=== PATIENT | female | born 1955 | race Caucasian/White ===

== ENCOUNTER → 2016-12-23 | Outpatient (CLI) | payer BC, OTHER ==
--- NOTE | 2016-12-23 16:10 | XR ---
Left knee HISTORY: Pain 3 views of the left knee No comparisons Bone mineralization is reduced. Marginal spurring is present especially at the patellofemoral joint, hypertrophic changes are present with some fragmentation of the enthesophyte at the insertion of the quadriceps tendon. There may be joint effusion. Popliteal artery calcifications are present. There is soft tissue swelling. Possible varicosities also noted. Difficult to exclude chondrocalcinosis. IMPRESSION: Suspect findings are chronic, consider osteoarthritis, crystal deposition arthropathy.
== END ==
LOC: RADXRMAIN 15:17
PROVIDERS: ATTEND Family Medicine
DX: M25.562 Pain in left knee (principal)

== ENCOUNTER 2017-02-11 08:19 | Day surgery (SDC) | payer BC, OTHER ==
[2017-02-05 16:08] VITALS: BMI 43.2
[~2017-02-11 08:19] MED LIST: LACTATED RINGERS 1,000 ML IV SCH; LIDOCAINE 1% 20 ML VIAL (10MG/ML) FOR IV START INTRADERMA PRN
[2017-02-11 08:34] VITALS: RESP 16; TEMP 98.3
--- NOTE | 2017-02-11 08:45 | P.GSHP ---
History of Present Illness H&P Date: 02/11/17 CHIEF COMPLAINT: Colon screen HISTORY OF PRESENT ILLNESS: The patient is a 61-year-old female who presents for colon screen. Lower endoscopy was offered for further evaluation and management. PAST MEDICAL HISTORY: Please see list. PAST SURGICAL HISTORY: Please see list. MEDICATIONS: Please see list. ALLERGIES: Please see list. SOCIAL HISTORY: No illicit drug use FAMILY HISTORY: No reports of Crohn disease or ulcerative colitis. REVIEW OF ORGAN SYSTEMS: CONSTITUTIONAL: No reports of fevers or chills. PHYSICAL EXAM: VITAL SIGNS: Stable GENERAL: Well-developed pleasant in no acute distress. HEENT: No scleral icterus. Extraocular movements grossly intact. Moist buccal mucosa. NECK: Supple without lymphadenopathy. CHEST: Unlabored respirations. Equal bilateral excursions. CARDIOVASCULAR: Regular rate and rhythm. Distal 2+ pulses. ABDOMEN: Soft, nontender, nondistended. MUSCULOSKELETAL: No clubbing, cyanosis, or edema. ASSESSMENT: 1. Colon screen. PLAN: 1. Recommend proceeding with a lower endoscopy Past Medical History Past Medical History: Cancer, GERD/Reflux, Hyperlipidemia, Hypertension, Myocardial Infarction ([place]), Thyroid Disorder Additional Past Medical History / Comment(s): HX BREAST CA, optical migraines, silent [place], heart murmer, frequent bowel movements, gets swelling of left leg- cause unknown, arthritis, Last Myocardial Infarction Date:: unknown History of Any Multi-Drug Resistant Organisms: None Reported Past Surgical History: AICD, Breast Surgery, Heart Catheterization, Pacemaker, Tonsillectomy Additional Past Surgical History / Comment(s): RT BREAST LUMPECTOMY Past Anesthesia/Blood Transfusion Reactions: Postoperative Nausea & Vomiting ( PONV) Type of Cardiac Device: Permanent Pacemaker, AICD Device Placement Date:: 05/30/2014 Past Psychological History: No Psychological Hx Reported Additional Psychological History / Comment(s): . Smoking Status: Current every day smoker Past Alcohol Use History: None Reported Additional Past Alcohol Use History / Comment(s): smokes 6 cigarretes daily, has smoked for 30 yrs Past Drug Use History: None Reported - Past Family History Sister(s) Family Medical History: Cancer Additional Family Medical History / Comment(s): 2 SISTERS WITH CERVICAL CA Medications and Allergies Home Medications Medication Instructions Recorded Confirmed Type Aspirin 81 mg PO DAILY 05/26/14 02/11/17 History Lisinopril [Zestril] 10 mg PO BID 05/26/14 02/11/17 History Lovastatin [Mevacor] 10 mg PO HS 05/26/14 02/11/17 History Spironolactone [Aldactone] 25 mg PO HS 05/26/14 02/11/17 History Calcium/Magnesium/Zinc 1 each PO BID 04/26/15 02/11/17 History [Ykrevlp-Msfboxiax-Utvb Tablet] Carvedilol [Coreg] 9.37 mg PO BID 02/05/17 02/11/17 History Magnesium Oxide [Magnesium] 250 mg PO DAILY 02/05/17 02/11/17 History Allergies Allergy/AdvReac Type Severity Reaction Status Date / Time perflutren lipid microspheres Allergy Rash/Hives, Verified 02/11/17 08:29 [From [employer]] diff swallowing iv contrast dye with heart Allergy Rash/Hives, Uncoded 02/11/17 08:29 cath diff swallowing Surgical - Exam Vital Signs Temp Pulse Resp BP Pulse Ox 98.3 F 69 16 147/69 98 02/11/17 08:33 02/11/17 08:33 02/11/17 08:33 02/11/17 08:33 02/11/17 08:33
[2017-02-11] MEDS ORDERED: PROPOFOL 10 MG/ML 20 ML VIAL IV ONE (09:28)
[2017-02-11] MEDS ORDERED: LIDOCAINE 1% INJ 10MG/ML (20 ML MDV) ONE (09:28)
[2017-02-11 10:22] VITALS: BP 132/77; PULSE 65
--- NOTE | 2017-02-11 10:36 | P.PCN ---
Date of Procedure: 02/11/17 Preoperative Diagnosis: Postoperative Diagnosis: Procedure(s) Performed: Implants: Indications for Procedure: Operative Findings: Description of Procedure: PREOPERATIVE DIAGNOSIS: Colonoscopy screening. Personal history of colon polyps. Family history of colon polyps. Diverticulosis. POSTOPERATIVE DIAGNOSIS: Colonoscopy screening. Personal history of colon polyps. Family history of colon polyps. Diverticulosis. External hemorrhoid. Anal skin tag. OPERATION: Colonoscopy to the ileocecal valve and appendiceal orifice. Colonoscopy with snare polypectomy of sigmoid colon, 15 cm from anal verge SURGEON: Nancy Osorio MD. ANESTHESIA: MAC. INDICATIONS: The patient is a 61-year-old female who presents for colonoscopy screening. Her last colonoscopy was between 8-10 years ago. Benefits and risks were described and informed consent was obtained. DESCRIPTION OF PROCEDURE: The patient had undergone Gatorade, MiraLAX and Dulcolax prep. She had been brought into the operating room and laid in the left lateral decubitus position. After adequate intravenous sedation, the rectum was examined with 2% lidocaine jelly. External hemorrhoids and skin tags were encountered. The rectal tone was within normal limits. No lesions were palpated in the rectal vault. An Olympus colonoscope was advanced until the ileocecal valve and appendiceal orifice were clearly viewed. The prep was excellent with clear visualization of the mucosal folds. The scope was removed with visualization of each mucosal fold. Scattered moderate diverticulosis was encountered. A 1.8 cm tubular adenoma with snare polypectomy at the sigmoid colon, 15 cm from the anal verge. No evidence of focal colitis was found. Retroflexion of the scope demonstrated grade 1 internal hemorrhoids without active bleeding or inflammation. The colon was desufflated. The patient had tolerated the procedure well. Withdrawal time was over 6 minutes. FINDINGS: Internal hemorrhoids, grade 1 External prolapsed hemorrhoids, grade 3. No arteriovenous malformations. A 1.8 cm tubular adenoma with snare polypectomy at the sigmoid colon, 15 cm from the anal verge. No focal colitis. Anal skin tag. RECOMMENDATIONS: Lower endoscopy in 1 to 2 years, 2018. Plan - Discharge Summary New Discharge Prescriptions: No Action Spironolactone [Aldactone] 25 mg PO HS Lovastatin [Mevacor] 10 mg PO HS Lisinopril [Zestril] 10 mg PO BID Aspirin 81 mg PO DAILY Calcium/Magnesium/Zinc [Esexfkk-Cmzppedag-Wnlp Tablet] 1 each PO BID Carvedilol [Coreg] 9.37 mg PO BID Magnesium Oxide [Magnesium] 250 mg PO DAILY Discharge Medication List Aspirin 81 mg PO DAILY 05/26/14 [History] Lisinopril [Zestril] 10 mg PO BID 05/26/14 [History] Lovastatin [Mevacor] 10 mg PO HS 05/26/14 [History] Spironolactone [Aldactone] 25 mg PO HS 05/26/14 [History] Calcium/Magnesium/Zinc [Tkmnoay-Tsrvbqbeo-Ckwr Tablet] 1 each PO BID 04/26/15 [ History] Carvedilol [Coreg] 9.37 mg PO BID 02/05/17 [History] Magnesium Oxide [Magnesium] 250 mg PO DAILY 02/05/17 [History] Follow up Appointment(s)/Referral(s): Nancy Osorio MD [STAFF PHYSICIAN] - 02/24/17 3:40 pm Patient Instructions/Handouts: *Surgery [facility] - (Anesthesia) Endoscopy Discharge Instructions, Colonoscopy (GEN), Diverticulosis (GEN), Colorectal Polyps (GEN), Diverticulosis Diet (GEN) Activity/Diet/Wound Care/Special Instructions: Repeat colonoscopy in 2019. Discharge Disposition: HOME SELF-CARE
== END 2017-02-11 10:36 | disposition home or self-care (01) ==
LOC: ORWHC2ENDO 08:19
PROVIDERS: ATTEND Surgery Plastic and Reconstructive Surgery
DX: Z12.11 Encounter for screening for malignant neoplasm of colon (principal); D12.5 Benign neoplasm of sigmoid colon; K64.2 Third degree hemorrhoids; K57.30 Diverticulosis of large intestine without perforation or abscess without bleeding; K64.0 First degree hemorrhoids; K64.4 Residual hemorrhoidal skin tags; Z86.010 Personal history of colon polyps; Z83.71 Family history of colonic polyps; K21.9 Gastro-esophageal reflux disease without esophagitis; E78.5 Hyperlipidemia, unspecified; I10 Essential (primary) hypertension; I25.2 Old myocardial infarction; E07.9 Disorder of thyroid, unspecified; F17.210 Nicotine dependence, cigarettes, uncomplicated; Z79.82 Long term (current) use of aspirin; Z79.899 Other long term (current) drug therapy; Z88.8 Allergy status to other drugs, medicaments and biological substances; Z91.041 Radiographic dye allergy status
CPT/HCPCS: 88305; 45385; J2001; J2704

== ENCOUNTER 2018-02-03 10:08 | Day surgery (SDC) | payer BC, OTHER ==
--- NOTE | 2018-02-03 08:13 | P.GSHP ---
History of Present Illness H&P Date: 02/03/18 CHIEF COMPLAINT: Colon screen HISTORY OF PRESENT ILLNESS: The patient is a 62-year-old female who presents for colon screen. Lower endoscopy was offered for further evaluation and management. PAST MEDICAL HISTORY: Please see list. PAST SURGICAL HISTORY: Please see list. MEDICATIONS: Please see list. ALLERGIES: Please see list. SOCIAL HISTORY: No illicit drug use FAMILY HISTORY: No reports of Crohn disease or ulcerative colitis. REVIEW OF ORGAN SYSTEMS: CONSTITUTIONAL: No reports of fevers or chills. PHYSICAL EXAM: VITAL SIGNS: Stable GENERAL: Well-developed pleasant in no acute distress. HEENT: No scleral icterus. Extraocular movements grossly intact. Moist buccal mucosa. NECK: Supple without lymphadenopathy. CHEST: Unlabored respirations. Equal bilateral excursions. CARDIOVASCULAR: Regular rate and rhythm. Distal 2+ pulses. ABDOMEN: Soft, nontender, nondistended. MUSCULOSKELETAL: No clubbing, cyanosis, or edema. ASSESSMENT: 1. Colon screen. PLAN: 1. Recommend proceeding with a lower endoscopy Past Medical History Past Medical History: Cancer, GERD/Reflux, Hyperlipidemia, Hypertension, Myocardial Infarction ([place]), Thyroid Disorder Additional Past Medical History / Comment(s): HX BREAST CA, optical migraines, silent [place], heart murmer, frequent bowel movements, gets swelling of left leg- cause unknown, arthritis, Last Myocardial Infarction Date:: unknown History of Any Multi-Drug Resistant Organisms: None Reported Past Surgical History: AICD, Breast Surgery, Heart Catheterization, Pacemaker, Tonsillectomy Additional Past Surgical History / Comment(s): RT BREAST LUMPECTOMY Past Anesthesia/Blood Transfusion Reactions: Postoperative Nausea & Vomiting ( PONV) Type of Cardiac Device: Permanent Pacemaker, AICD Device Placement Date:: 05/30/2014 Past Psychological History: No Psychological Hx Reported Additional Psychological History / Comment(s): . Smoking Status: Current every day smoker Past Alcohol Use History: None Reported Additional Past Alcohol Use History / Comment(s): smokes 6 cigarretes daily, has smoked for 30 yrs Past Drug Use History: None Reported - Past Family History Sister(s) Family Medical History: Cancer Additional Family Medical History / Comment(s): 2 SISTERS WITH CERVICAL CA Medications and Allergies Home Medications Medication Instructions Recorded Confirmed Type Aspirin 81 mg PO DAILY 05/26/14 02/11/17 History Lisinopril [Zestril] 10 mg PO BID 05/26/14 02/11/17 History Lovastatin [Mevacor] 10 mg PO HS 05/26/14 02/11/17 History Spironolactone [Aldactone] 25 mg PO HS 05/26/14 02/11/17 History Calcium/Magnesium/Zinc 1 each PO BID 04/26/15 02/11/17 History [Twnogxa-Zuiebmukb-Uefj Tablet] Carvedilol [Coreg] 9.37 mg PO BID 02/05/17 02/11/17 History Magnesium Oxide [Magnesium] 250 mg PO DAILY 02/05/17 02/11/17 History Allergies Allergy/AdvReac Type Severity Reaction Status Date / Time perflutren lipid microspheres Allergy Rash/Hives, Verified 02/11/17 08:29 [From [employer]] diff swallowing iv contrast dye with heart Allergy Rash/Hives, Uncoded 02/11/17 08:29 cath diff swallowing
[2018-02-03 12:05] VITALS: RESP 18; TEMP 97.8
[2018-02-03] MEDS ORDERED: LACTATED RINGERS 1,000 ML IV ONE (12:05)
[2018-02-03] MEDS ORDERED: PROPOFOL 10 MG/ML 20 ML VIAL IV ONE (12:23)
[2018-02-03 12:51] VITALS: PULSE 70
--- NOTE | 2018-02-03 12:52 | P.PCN ---
Date of Procedure: 02/03/18 Description of Procedure: PREOPERATIVE DIAGNOSIS: Colonoscopy screening. Personal history of colon polyps. Family history of colon polyps. Diverticulosis. POSTOPERATIVE DIAGNOSIS: Colonoscopy screening. Personal history of colon polyps. Family history of colon polyps. Diverticulosis. External hemorrhoid. Anal skin tag. OPERATION: Colonoscopy to the ileocecal valve and appendiceal orifice. Colonoscopy with snare polypectomy of mid transverse colon SURGEON: Nancy Osorio MD. ANESTHESIA: MAC. INDICATIONS: The patient is a 62-year-old female who presents for colonoscopy screening. Her last colonoscopy was 1 year ago with a large over 1.5 cm colon polyp. She presents for surveillance. Benefits and risks were described and informed consent was obtained. DESCRIPTION OF PROCEDURE: The patient had undergone Gatorade, MiraLAX and Dulcolax prep. She had been brought into the operating room and laid in the left lateral decubitus position. After adequate intravenous sedation, the rectum was examined with 2% lidocaine jelly. External hemorrhoids and anal skin tags were encountered. The rectal tone was within normal limits. No lesions were palpated in the rectal vault. An Olympus colonoscope was advanced until the ileocecal valve and appendiceal orifice were clearly viewed. The prep was excellent with clear visualization of the mucosal folds. The scope was removed with visualization of each mucosal fold. Scattered moderate diverticulosis was encountered with moderate sigmoid diverticulosis. At the mid transverse colon, a 3 mm to 4 adenoma with snare polypectomy. No recurrence of her tubular adenoma of the sigmoid colon. No evidence of focal colitis was found. Retroflexion of the scope demonstrated grade 1 internal hemorrhoids without active bleeding or inflammation. The colon was desufflated. The patient had tolerated the procedure well. Withdrawal time was over 6 minutes. FINDINGS: Internal hemorrhoids, grade 1 External prolapsed hemorrhoids, grade 3. No arteriovenous malformations. Scattered moderate diverticulosis was encountered with moderate sigmoid diverticulosis. At the mid transverse colon, a 3 mm to 4 adenoma with snare polypectomy. No recurrence of her tubular adenoma of the sigmoid colon. No focal colitis. Anal skin tag. RECOMMENDATIONS: Lower endoscopy in 3 years, 2020 Plan - Discharge Summary New Discharge Prescriptions: No Action Spironolactone [Aldactone] 1.5 tab PO DAILY Lovastatin [Mevacor] 10 mg PO HS Lisinopril [Zestril] 10 mg PO BID Aspirin 81 mg PO DAILY Calcium/Magnesium/Zinc [Stktgjs-Abnbnycnk-Tmjo Tablet] 1 each PO BID Carvedilol [Coreg] 9.37 mg PO BID Magnesium Oxide [Magnesium] 250 mg PO DAILY Discharge Medication List Aspirin 81 mg PO DAILY 05/26/14 [History] Lisinopril [Zestril] 10 mg PO BID 05/26/14 [History] Lovastatin [Mevacor] 10 mg PO HS 05/26/14 [History] Spironolactone [Aldactone] 1.5 tab PO DAILY 05/26/14 [History] Calcium/Magnesium/Zinc [Lgjmznq-Mydhmjzls-Tzbm Tablet] 1 each PO BID 04/26/15 [ History] Carvedilol [Coreg] 9.37 mg PO BID 02/05/17 [History] Magnesium Oxide [Magnesium] 250 mg PO DAILY 02/05/17 [History]
[2018-02-03 13:09] VITALS: BP 128/84
[2018-02-03] MEDS ORDERED: LACTATED RINGERS 1,000 ML IV SCH (13:09)
[2018-02-03] MEDS ORDERED: LIDOCAINE 1% 20 ML VIAL (10MG/ML) FOR IV START INTRADERMA PRN (13:09)
== END 2018-02-03 13:25 | disposition home or self-care (01) ==
LOC: ORWHC2ENDO 10:08
PROVIDERS: ATTEND Surgery Plastic and Reconstructive Surgery
DX: Z12.11 Encounter for screening for malignant neoplasm of colon (principal); D12.3 Benign neoplasm of transverse colon; K63.5 Polyp of colon; K21.9 Gastro-esophageal reflux disease without esophagitis; E78.5 Hyperlipidemia, unspecified; I10 Essential (primary) hypertension; I25.2 Old myocardial infarction; M19.90 Unspecified osteoarthritis, unspecified site; F17.210 Nicotine dependence, cigarettes, uncomplicated; Z85.3 Personal history of malignant neoplasm of breast; E07.9 Disorder of thyroid, unspecified; K64.4 Residual hemorrhoidal skin tags; K64.0 First degree hemorrhoids; Z95.810 Presence of automatic (implantable) cardiac defibrillator; Z79.82 Long term (current) use of aspirin; Z79.899 Other long term (current) drug therapy; Z91.041 Radiographic dye allergy status; Z86.010 Personal history of colon polyps; Z83.71 Family history of colonic polyps
CPT/HCPCS: 88305; 45385; J2704

== ENCOUNTER → 2019-07-21 | Outpatient (CLI) | payer BC, OTHER | END | disposition home or self-care (01) | LOC: LABPAT 17:31 | PROVIDERS: ATTEND Orthopaedic Surgery | DX: Z01.812 Encounter for preprocedural laboratory examination (principal) | CPT/HCPCS: 87070 ==

== ENCOUNTER 2019-08-01 07:54 | Day surgery (SDC) | payer BC, OTHER ==
[2019-07-26 15:38] VITALS: BMI 42.5
--- NOTE | 2019-07-31 10:42 | HP ---
HISTORY AND PHYSICAL REASON FOR ADMISSION: Surgery scheduled for 08/01/2019 Rhonda Ann is a 63-year-old patient seen with symptomatic right knee osteoarthritis. After having options for treatment discussed with her, she elected to proceed with right total knee arthroplasty. Consent regarding procedure was obtained. Medical clearance was provided by Dr. Mercado. Cardiac clearance by Dr. Gaona. PAST MEDICAL HISTORY: Cardiovascular disease, hypertension, hyperlipidemia, oxz-gxhfera-tmfgifhna diabetes. PAST SURGICAL HISTORY: Pacemaker defibrillator insertion, breast lumpectomy. MEDICATIONS: Carvedilol, Eliquis, lisinopril, lovastatin, metformin, spironolactone. ALLERGIES: IV DYE. SOCIAL HISTORY: She denies current tobacco use. PHYSICAL EXAMINATION: Evaluation of the right knee: Range of motion is -8 to 100. There is a mild effusion present. She is tender along the medial joint line. Crepitus along the medial and patellofemoral compartments with range of motion. Pain with patellofemoral compression. Ligaments stable. Hip rotation without pain. Distal neurovascular exam is intact. RADIOGRAPHS: Radiographs of the right knee reveal severe medial and severe patellofemoral compartment osteoarthritis. IMPRESSION: 1. Right knee osteoarthritis. 2. Hypertension. 3. Hyperlipidemia. 4. Yum-haikarm-xufldngxf diabetes. 5. Cardiovascular disease. PLAN: Right total knee arthroplasty. Surgery scheduled for 08/01/2019. MMODL / IJN: [id number] /
[~2019-08-01 07:54] MED LIST changes: +ACETAMINOPHEN TAB 500 MG TAB PO ONE; +DEXAMETHASONE SOD PHOSPHATE 10 MG/ML 1 ML VIAL IV ONE; +HYDROmorphone 0.5 MG/0.5 ML SYRINGE IVP PRN; -LACTATED RINGERS 1,000 ML IV SCH; +MELOXICAM 7.5 MG TAB PO ONE; +MIDAZOLAM 2 MG/2 ML VIAL IV PRN; +ONDANSETRON 4 MG/2 ML VIAL IVP ONE; +ROPIVACAINE 246.25 MG, EPINEPHrine 0.5 MG, KETOROLAC 30 MG, cloNIDine HCL/PF 80 MCG, WA... MISCELLANE ONE; +TRANEXAMIC ACID 1,000 MG in SODIUM CHLORIDE 0.9% 100 ML IVPB ONE; +ceFAZolin 3 GM in SODIUM CHLORIDE 0.9% 100 ML IVPB ONE; +fentaNYL (PF) 50 MCG/ML 2 ML AMP IV PRN
[2019-08-01 08:49] LABS: Glucose,Whole Blood 116 mg/dL (75-99)
[2019-08-01] MEDS: LACTATED RINGERS 1,000 ML IV SCH ×4 (09:02→20:51)
[2019-08-01] MEDS ORDERED: diphenhydrAMINE 50 MG/ML 1 ML VIAL ONE (10:00)
[2019-08-01] MEDS ORDERED: MIDAZOLAM 2 MG/2 ML VIAL ONE (10:00)
[2019-08-01] MEDS ORDERED: TRANEXAMIC ACID 1,000 MG/10 ML VIAL ONE (10:00)
[2019-08-01] MEDS ORDERED: SODIUM CHLORIDE 0.9% 100 ML BAG ONE (10:00)
[2019-08-01] MEDS ORDERED: ROPIVACAINE 0.2%-NS ON-Q PUMP 1,090 MG, EMPTY PAIN BALL 1 EACH MISCELLANE PRN (10:25)
[2019-08-01] MEDS ORDERED: ceFAZolin 3,000 MG in SODIUM CHLORIDE 0.9% IRRIGATIO 3,000 ML IRRIGATION ONE (10:34)
--- NOTE | 2019-08-01 11:49 | P.OP ---
Date of Procedure: 08/01/19 Preoperative Diagnosis: Right knee osteoarthritis Postoperative Diagnosis: Right knee osteoarthritis Procedure(s) Performed: Right total knee arthroplasty Implants: 1. Depuy attune knee size 6 right cruciate retaining cemented femur 2. Depuy attune size 5 revision cemented tibial baseplate with 14 mm x 15 mm stem 3. Depuy attune size 5 fixed bearing cruciate retaining 12 mm polyethylene tibial insert 4. Depuy attune 38 mm all polyethylene cemented patella Anesthesia: regional (Adductor canal catheter), local, spinal Surgeon: Rodríguez Gamboa Hr Administrative Assistant #1: Talha Salazar Estimated Blood Loss (ml): 25 Pathology: other (Bone) Condition: stable Disposition: PACU Indications for Procedure: 64-year-old patient seen with symptomatic right knee osteoarthritis. After treatment options were discussed, she elected to proceed with total knee arthroplasty Operative Findings: See description of procedure Description of Procedure: Patient was taken to the operative suite after having an adductor canal catheter placed by the department of anesthesia for postoperative pain management. Patient underwent a spinal anesthetic by the department of anesthesia. Patient was given preoperative IV intake antibiotics and TXA. A well-padded tourniquet was placed about the right lower extremity. The lower extremity was then prepped and draped in the normal sterile orthopedic fashion. The extremity was elevated, a tourniquet was insufflated to 300. A standard anterior incision was made sharply through skin. Dissection was taken down through the subcutaneous soft tissues down to the extensor mechanism. A medial arthrotomy was performed, patella was everted and knee was flexed. There was advanced osteoarthritis noted. I introduced my distal intramedullary femoral drill. I then introduced the distal femoral cutting jig. Sloan ARELLANO secured the cutting jig with 2 pins. I held retractors in position while Sloan ARELLANO performed the distal femoral resection through the guide area we now removed her distal femoral cutting guide. We now placed our 4-in-1 femoral cutting block and positioned and it was secured with 2 pins by Sloan ARELLANO while I held the block in position. The distal femoral finishing was now completed. A proximal tibial cutting guide was positioned. I held the guide in the appropriate position with both hands well Sloan ARELLANO inserted stabilizing pins into the guide. Proximal tibial cut was made. We now placed a trial femoral component into position, along with an appropriate size tibial tray and insert. We now took the knee through range of motion and had full extension good flexion and good overall soft tissue balance noted. The patella was everted and stabilized with 2 towel clips held by Sloan ARELLANO while I performed a flush with patellar quad tendon utilizing a fresh sawblade. We templated the patella, appropriate drill holes were made. An appropriate trial patella was positioned, knee was taken through full range of motion with the patella tracking very nicely. The trial patella was removed. Drill holes were made through the femoral component. All trial components were removed after marking off the appropriate rotation of the tibia. Retractors were now positioned along the proximal tibia. An appropriate keel punch was made with the appropriate size tibial guide by myself on Sloan ARELLANO assisted by holding retractors. At this point appropriate size implants were chosen and opened. The joint was irrigated copiously with pulse lavage mechanical irrigation. The posterior capsule was infiltrated with local analgesic. The wound was irrigated with pulse lavage mechanical irrigation. We mixed antibiotic methylmethacrylate. We placed the knee into flexion. We placed multiple retractors assisted by Sloan ARELLANO to expose the proximal tibia. Once the methyl methacrylate was ready, the tibial component was cemented into place removing any excess methylmethacrylate form by both myself and Sloan ARELLANO. The femoral component was cemented into place removing the removing any excess methylmethacrylate performed by both myself and Sloan ARELLANO. We then inserted the appropriate size polyethylene tibial insert. We made sure that it was locked into position. We took the knee into full extension, and then back in a flexion making sure we had removed any excess methylmethacrylate. The patellar component was then cemented down and secured with clamp. Excess methylmethacrylate removed. We kept the knee in full extension, patellar clamp in position until methylmethacrylate had hardened. Once it had hardened the patellar clamp was removed. The knee was taken through full range of motion. The patella tracked nicely. There was good soft tissue balancing. The tourniquet was now released. Additional hemostasis was achieved via electrocautery. A second gram of TXA was given. The wound again was irrigated with pulse lavage mechanical irrigation. The superficial soft tissues were infiltrated local analgesic. The extensor mechanism was repaired with Vicryl. We checked the repair with range of motion and it was stable. The subcutaneous soft tissues were repaired with Vicryl in layers. The skin was approximated with pernio/Dermabond. Sterile dressings were applied followed by loose web roll and Geovani bandage. The patient was transferred to a bed, and taken to recovery in stable and satisfactory condition. Sloan ARELLANO assisted with this complex procedure.
[2019-08-01] MEDS ORDERED: NALOXONE 0.4 MG/ML 1 ML VIAL IV PRN (11:50)
[2019-08-01] MEDS ORDERED: ONDANSETRON 4 MG/2 ML VIAL IVP PRN (11:50)
[2019-08-01] MEDS ORDERED: HYDROmorphone 1 MG/ML 1 ML SYRINGE IVP PRN (11:50)
[2019-08-01] MEDS ORDERED: HYDROmorphone 0.5 MG/0.5 ML SYRINGE IVP PRN ×2 (11:50)
[2019-08-01 12:25] LABS: Glucose,Whole Blood 141 mg/dL (75-99)
--- NOTE | 2019-08-01 12:37 | XR ---
EXAMINATION TYPE: XR knee limited RT DATE OF EXAM: 08/01/2019 COMPARISON: NONE HISTORY: 64-year-old female evaluation for postoperative abnormality and alignment TECHNIQUE: 2 views FINDINGS: Images show placement of right total knee arthroplasty with a short tibial stem component. Alignment grossly anatomic. Both tibial and femoral components appear well-seated without periprosthetic fractu re. Anterior soft tissue swelling with scattered soft tissue air as well as intra-articular air relat ed to recent operation. Anterior midline skin ernst. IMPRESSION: Uncomplicated postoperative appearance right total knee arthroplasty.
[2019-08-01] MEDS: HYDROcodone/APAP 5-325MG 1 EACH TAB PO PRN ×3 (16:13→22:52)
[2019-08-01 16:59] LABS: Glucose,Whole Blood 235 mg/dL (75-99)
[2019-08-01] MEDS: CARVEDILOL 6.25 MG TAB PO SCH (17:15)
[2019-08-01] MEDS: ceFAZolin 3 GM in SODIUM CHLORIDE 0.9% 100 ML IVPB SCH (17:20)
[2019-08-01] MEDS ORDERED: metFORMIN 500 MG TAB PO SCH (18:30)
--- NOTE | 2019-08-01 19:42 | P.ANPRN ---
Procedure Note - Anesthesia - Nerve Block Performed Right Adductor Canal Infusion Time Out Performed: Yes Date of Procedure: 08/01/19 Procedure Start Time: 08:41 Procedure Stop Time: 08:54 Location of Patient: PreOp Indication: Acute Post-Operative Pain, Requested by Surgeon Sedation Type: Sedate with meaningful contact maintained Preparation: Sterile Prep, Sterile Dressing Position: Supine Catheter: Indwelling Needle Types: Pajunk Needle Gauge: 21 Ultrasound used to visualize needle placement: Yes Ultrasound used to observe medication spread: Yes Blood Aspirated: No Pain Paresthesia on Injection Noted: No Resistance on Injection: Normal Image Stored and Saved: Yes Events: Uneventful and Well Tolerated (ropi .5% 30cc plus dexamethasone 4mg)
[2019-08-01] MEDS: LISINOPRIL 10 MG TAB PO SCH (20:50)
[2019-08-01] MEDS ORDERED: ATORVASTATIN 10 MG TAB PO SCH (21:00)
[2019-08-01] MEDS ORDERED: ENOXAPARIN 30 MG/0.3 ML SYRINGE SQ SCH (21:00)
[2019-08-01] MEDS ORDERED: SENNOSIDES-DOCUSATE SODIUM 1 EACH TAB PO SCH (21:00)
[2019-08-01 21:05] LABS: Glucose,Whole Blood 269 mg/dL (75-99)
--- NOTE | 2019-08-01 22:50 | P.CONS ---
History of Present Illness - Reason for Consult Consult date: 08/01/19 Medical management Requesting physician: Rodríguez Gamboa - Chief Complaint Right knee surgery - History of Present Illness Consultation: This is a pleasant 64-year-old patient of Dr. Ashley Mercado. Chronic stable medical conditions include diabetes, GERD, hypertension, hyperlipidemia, silent [place], AICD/permanent pacemaker. Patient has undergone a right total knee a rthroplasty. Pain well controlled. Already has been out of bed. No nausea vomiting. No chest pain. Did tolerate a small supper. Review of systems: GEN.: None EYES: None HEENT: None NECK: None RESPIRATORY: None CARDIOVASCULAR: None GASTROINTESTINAL: None GENITOURINARY: None MUSCULOSKELETAL: Joint pains LYMPHATICS: None HEMATOLOGICAL: None PSYCHIATRY: None NEUROLOGICAL: None Past medical history to include: Diabetes mellitus type 2, GERD, hypertension, hyperlipidemia, silent AZ as to to the patient of Dr. Gaona, primary or strength redness, AICD/permanent pacemaker. Patient's Synthroid was discontinued by Dr. Gaona per the patient Social history: Patient be smoking close to 40 years. Don't diffuse elucidated. . Alcohol occasionally. Physical examination: VITAL SIGNS: 98.2, 78, 18, 11 6/68, 94% room air GENERAL: BMI 41.8, laying in bed, comfortable. EYES: Pupils equal. Conjunctiva normal. HEENT: External appearance of nose and ears normal, oral cavity grossly normal. NECK: JVD not raised; masses not palpable. HEART: First and second heart sounds are normal; no edema. LUNGS: Respiratory rate normal; clear to auscultation. ABDOMEN: Soft, nontender, liver spleen not palpable, no masses palpable. PSYCH: Alert and oriented x3; mood and affect normal. NEUROLOGICAL: Cranial nerves grossly intact; no facial asymmetry, power and sensation grossly intact. LYMPHATICS: No lymph nodes palpable in the axilla and neck MUSCULOSKELETAL: Dressing over the right knee Investigations: [id number], 235, to 69 Assessment: -Right total knee arthroplasty -Diabetes mellitus type 2 on oral hypoglycemic and non-good -Essential hypertension -hyperlipidemia -Coronary artery disease with prior history of silent AZ as per Dr. Gaona -AICD/permanent pacemaker -Morbid obesity BMI 41.8 Plan: Home medications resumed. Accu-Cheks will be followed. Care was discussed the patient.. DVT prophylaxis per Dr. Chatterjee. Patient should follow with his PCP upon discharge. Thank you Dr. Chatterjee Past Medical History Past Medical History: Cancer, Diabetes Mellitus, GERD/Reflux, Hyperlipidemia, Hypertension, Myocardial Infarction ([place]), Osteoarthritis (OA), Thyroid Disorder Additional Past Medical History / Comment(s): BREAST CA (2007- lumpectomy, chemo & radiation tx)., optical migraines, silent [place], heart murmur, varicose veins, back pain., uses cane, states swelling left leg, tightness left leg and then it subsides. Last Myocardial Infarction Date:: unknown History of Any Multi-Drug Resistant Organisms: None Reported Past Surgical History: AICD, Breast Surgery, Heart Catheterization, Pacemaker, Tonsillectomy Additional Past Surgical History / Comment(s): RT BREAST LUMPECTOMY, PACEMAKER/AICD- ([facility]) Past Anesthesia/Blood Transfusion Reactions: Postoperative Nausea & Vomiting (PONV) Type of Cardiac Device: Permanent Pacemaker, AICD Device Placement Date:: 05/30/2014 Past Psychological History: Depression Additional Psychological History / Comment(s): STATES OCCASIONAL DEPRESSION Smoking Status: Current every day smoker Past Alcohol Use History: Rare Additional Past Alcohol Use History / Comment(s): smokes 5-7 cigarettes daily, has smoked for 30 yrs or more. Past Drug Use History: None Reported - Past Family History Sister(s) Family Medical History: Cancer Additional Family Medical History / Comment(s): 2 SISTERS WITH CERVICAL CA Medications and Allergies Home Medications Medication Instructions Recorded Confirmed Type Lisinopril [Zestril] 10 mg PO BID 05/26/14 08/01/19 History Lovastatin [Mevacor] 10 mg PO HS 05/26/14 08/01/19 History Spironolactone [Aldactone] 25 mg PO DAILY 05/26/14 08/01/19 History Calcium/Magnesium/Zinc 1 each PO BID 04/26/15 08/01/19 History [Oqxmgnx-Seaannvso-Hofl Tablet] Carvedilol [Coreg] 9.37 mg PO BID 02/05/17 08/01/19 History Apixaban [Eliquis] 5 mg PO BID 07/26/19 08/01/19 History Glucos Sul 2Kcl/MSM/Chond/C/Mn 1 each PO BID 07/26/19 08/01/19 History [Glucosamine Chondroitin Cap] metFORMIN HCL [Glucophage] 500 mg PO PC-SUPPER 07/26/19 08/01/19 History traMADol HCL [Ultram] 50 mg PO QID PRN 07/26/19 08/01/19 History Allergies Allergy/AdvReac Type Severity Reaction Status Date / Time perflutren lipid microspheres Allergy Rash/Hives, Verified 07/26/19 14:43 [From Definity] diff swallowing iv contrast dye with heart Allergy Rash/Hives, Uncoded 07/26/19 14:43 cath diff swallowing Physical Exam Vitals: Vital Signs Temp Pulse Pulse Resp BP Pulse Ox 08/01/19 20:26 98.2 F 78 18 116/68 94 L 08/01/19 15:15 67 140/64 08/01/19 15:00 71 157/86 08/01/19 14:45 68 137/78 08/01/19 14:30 62 122/74 08/01/19 14:17 57 L 16 08/01/19 14:15 67 149/76 08/01/19 14:00 66 134/76 08/01/19 13:45 66 144/65 08/01/19 13:30 69 133/71 08/01/19 13:15 97.5 F L 65 16 117/72 94 L 08/01/19 12:45 57 L 16 112/54 96 08/01/19 12:30 57 L 16 110/52 95 08/01/19 12:15 58 L 16 106/55 93 L 08/01/19 12:00 96.8 F L 63 16 117/54 95 08/01/19 09:00 98.5 F 69 18 127/59 96 08/01/19 08:55 60 18 126/58 96 Intake and Output 08/01/19 08/01/19 08/01/19 06:59 14:59 22:59 Intake Total 1051 Output Total 25 Balance 1026 Intake: IV 1051 Output: Estimated Blood Loss 25 Other: Voiding Method Toilet # Voids 1 Weight 124.738 kg Results Labs: Abnormal Lab Results - Last 24 Hours (Table) 08/01/19 08/01/19 08/01/19 Range/Units 08:37 12:23 16:45 POC Glucose (mg/dL) 116 H 141 H 235 H (75-99) mg/dL 08/01/19 Range/Units 20:54 POC Glucose (mg/dL) 269 H (75-99) mg/dL
[2019-08-02] MEDS: ceFAZolin 3 GM in SODIUM CHLORIDE 0.9% 100 ML IVPB SCH (01:47)
[2019-08-02] MEDS: HYDROcodone/APAP 5-325MG 1 EACH TAB PO PRN ×3 (04:37→16:45)
[2019-08-02 07:18] LABS: Basophils % (A) 0 %; Eosinophils % (A) 0 %; HCT 42.6 % (34.0-46.0); HGB 13.6 gm/dL (11.4-16.0); Lymphocytes # (A) 1.5 k/uL (1.0-4.8); Lymphocytes % (A) 11 %; MCH 28.2 pg (25.0-35.0); MCV 87.9 fL (80.0-100.0); Mean Platelet Volume 6.6; Monocytes # (A) 0.7 k/uL (0-1.0); Monocytes % (A) 5 %; Neutrophils # (A) 12.3 k/uL (1.3-7.7); Neutrophils % (A) 84 %; Platelet Count 209 k/uL (150-450); RBC 4.84 m/uL (3.80-5.40); WBC 14.7 k/uL (3.8-10.6)
[2019-08-02 07:30] LABS: Glucose,Whole Blood 162 mg/dL (75-99)
[2019-08-02] MEDS: INSULIN ASPART (NovoLOG) 100 UNIT/ML VIAL SQ SCH ×2 (07:49→12:08)
--- NOTE | 2019-08-02 07:50 | P.PN ---
Progress Note - Text 08/02 710am 64-year-old female status post total knee replacement by Dr. Gamboa. Patient seen and evaluated this morning for pain control, patient has an On-Q pump infusion at 8 mL an hour. Patient has a VAS of 4. Plan to continue On-Q pump infusion
[2019-08-02] MEDS: LISINOPRIL 10 MG TAB PO SCH (07:55)
[2019-08-02] MEDS: CARVEDILOL 6.25 MG TAB PO SCH (07:56)
[2019-08-02] MEDS: LACTATED RINGERS 1,000 ML IV SCH (07:56)
[2019-08-02] MEDS ORDERED: SPIRONOLACTONE 25 MG TAB PO SCH (09:00)
[2019-08-02] MEDS ORDERED: MELOXICAM 7.5 MG TAB PO SCH (09:00)
[2019-08-02] MEDS: APIXABAN 5 MG TAB PO SCH ×2 (10:54→16:31)
[2019-08-02 11:48] LABS: Glucose,Whole Blood 152 mg/dL (75-99)
--- NOTE | 2019-08-02 13:06 | P.PN ---
Subjective Progress Note Date: 08/02/19 Principal diagnosis: Status post right total knee arthroplasty Patient evaluated at bedside, she is resting comfortably. She has friends at bedside with her. Patient has very high co-pay's with regards to home physical therapy and nursing. She is interested in going home. Her pain is well- controlled. Objective - Vital Signs Vital signs: Vital Signs Temp 97.9 F 08/02/19 07:00 Pulse 71 08/02/19 08:00 Resp 16 08/02/19 08:00 BP 141/66 08/02/19 07:00 Pulse Ox 96 08/02/19 07:00 Intake & Output 08/01/19 08/02/19 08/02/19 18:59 06:59 18:59 Intake Total 1051 Output Total 25 Balance 1026 Weight 124.738 kg Intake: IV 1051 Output: Estimated Blood Loss 25 Other: Voiding Method Toilet Toilet # Voids 1 1 - Exam Right lower extremity: Incision is clean, dry, and intact. The ernst are in good condition. There is minimal soft tissue swelling and ecchymosis surrounding the medial and lateral aspects of the incision. Calf is soft, no tenderness with palpation. Plantar flexion, dorsiflexion, EHL, FHL are intact. Sensory exam to light touch throughout the extremity is intact, dorsal pedis pulses 2+. - Labs CBC & Chem 7: 08/02/19 06:16 Labs: Abnormal Lab Results - Last 24 Hours (Table) 08/01/19 08/01/19 08/02/19 Range/Units 16:45 20:54 06:16 WBC 14.7 H (3.8-10.6) k/uL Neutrophils # 12.3 H (1.3-7.7) k/uL POC Glucose (mg/dL) 235 H 269 H (75-99) mg/dL 08/02/19 08/02/19 Range/Units 07:16 11:36 WBC (3.8-10.6) k/uL Neutrophils # (1.3-7.7) k/uL POC Glucose (mg/dL) 162 H 152 H (75-99) mg/dL Assessment and Plan Plan: Assessment: Postop day #1 status post right total knee arthroplasty Plan: Pain control, continue oral medication GI and DVT prophylaxis, continue current medication Wound care instructions discussed Medical recommendations Encourage incentive spirometer Considering discharged home today, we'll reassess later this afternoon Time with Patient: Less than 30
[2019-08-02 14:56] LABS: Hemoglobin A1C 6.6 % (4.0-6.0)
--- NOTE | 2019-08-02 15:53 | P.DS ---
Providers Date of admission: 08/01/2019 Expected date of discharge: 08/02/19 Attending physician: Rodríguez aGmboa Consults: 08/01/19 11:50 Consult Physician Routine Consulting Provider: Landen Mercado Reason/Comments: Medical management Do you want consulting provider notified?: Yes Primary care physician: Landen Mercado [facility] Course: Date of admission: 08/01/2019 Date of discharge: 08/02/2019 Admission diagnosis: Status post right total knee arthroplasty Discharge diagnosis: Same Attending physician: Dr. Gamboa Surgical procedures: Right total knee arthroplasty Brief history: Patient is a 64-year-old female with a history of progressive primary right knee osteoarthritis. At this point patient has failed conservative treatment measures and has opted to proceed with a elective right total knee arthroplasty. Hospital course: Details of patient's surgery can be found in operative report. Patient tolerated the procedure well and was subsequently transported to orthopedic floor. Patient's orthopeidc and medical care was provided daily. Patient had daily laboratory tests performed for evaluation of overall blood counts. Patient had daily physical therapy to include strengthening range of motion as well as education with walker ambulation. Patient had daily CPM usage as part of their physical therapy program. Patient was treated with Eliquis for their postoperative DVT prophylaxis during their inpatient stay. Patient was noted to have a relatively uneventful postoperative course. Patient reported satisfactory pain control with oral pain medications by postoperative day 0. Patient showed satisfactory progress with physical therapy. Patient moved steadily through the program and had no difficulty meeting the goals by postop erative day 1. Given patient's otherwise satisfactory course and having met physical therapy goals, plan is to discharge patient home on postoperative day 1. Discharge condition/disposition: Patient will be discharged home in stable condition. Discharge medications: Instructions are given on resumption of patient's normal daily medications per primary care recommendation, in addition patient will be prescribed Humptulips 5 mg/325 mg, Colace 100 mg. Discharge instructions: 1. Wound care and infection precautions, keep incision dry and covered while showering, no lotions, creams, moisturizers. No soaking, tubs, pools, hottubs. Do not scrub over the incision. 2. Weight-bear as tolerated with walker / cane until follow-up. 3. Ice and elevate when necessary. Do not exceed 20 minutes per hour with ice pack. 4. Utilize compression sleeve until seen at first follow up appointment. 5. Visiting nursing care. 6. Home physical therapy including home CPM. 7. Pain meds and anticoagulants per prescription. 8. Pain medication has potential to cause constipation. Increase oral fluid and fiber intake. Contact primary care provider if you have not had a bowel movement within 48 hours after discharge 9. No anti-inflammatory medication until discussed at first post operative visit, this including Motrin, Aleve, Mobic, Diclofenac. 10. Follow up in office at 2 weeks postop with Sloan Salazar PA-C 11. Follow up with your primary care doctor 7-10 days after discharge. 12. Contact [facility] with any questions, . Procedures: Right total knee arthroplasty Patient Condition at Discharge: Good Plan - Discharge Summary Discharge Rx Participant: Yes New Discharge Prescriptions: New Docusate [Colace] 100 mg PO DAILY #30 capsule Hydrocodone/Acetaminophen [Humptulips 5-325] 1 - 2 each PO Q6HR PRN #56 tab PRN Reason: Pain No Action Spironolactone [Aldactone] 25 mg PO DAILY Lovastatin [Mevacor] 10 mg PO HS Lisinopril [Zestril] 10 mg PO BID Calcium/Magnesium/Zinc [Uzskong-Vprngmlee-Aoiq Tablet] 1 each PO BID Carvedilol [Coreg] 9.37 mg PO BID traMADol HCL [Ultram] 50 mg PO QID PRN PRN Reason: Pain metFORMIN HCL [Glucophage] 500 mg PO PC-SUPPER Apixaban [Eliquis] 5 mg PO BID Glucos Sul 2Kcl/MSM/Chond/C/Mn [Glucosamine Chondroitin Cap] 1 each PO BID Discharge Medication List Lisinopril [Zestril] 10 mg PO BID 05/26/14 [History] Lovastatin [Mevacor] 10 mg PO HS 05/26/14 [History] Spironolactone [Aldactone] 25 mg PO DAILY 05/26/14 [History] Calcium/Magnesium/Zinc [Hdmmwno-Iopjcosla-Gyvv Tablet] 1 each PO BID 04/26/15 [History] Carvedilol [Coreg] 9.37 mg PO BID 02/05/17 [History] Apixaban [Eliquis] 5 mg PO BID 07/26/19 [History] Glucos Sul 2Kcl/MSM/Chond/C/Mn [Glucosamine Chondroitin Cap] 1 each PO BID 07/26/19 [History] metFORMIN HCL [Glucophage] 500 mg PO PC-SUPPER 07/26/19 [History] traMADol HCL [Ultram] 50 mg PO QID PRN 07/26/19 [History] Docusate [Colace] 100 mg PO DAILY #30 capsule 08/02/19 [Rx] Hydrocodone/Acetaminophen [Humptulips 5-325] 1 - 2 each PO Q6HR PRN #56 tab 08/02/19 [Rx] Follow up Appointment(s)/Referral(s): [facility] [NON-STAFF] - As Needed (Continuous Passive Motion knee machine) [facility], [NON-STAFF] - As Needed Talha Salazar, ANAM [PHYSICIAN BLACK PICKLER] - 08/17/19 2:30 pm Patient Instructions/Handouts: Knee Replacement (DC) Activity/Diet/Wound Care/Special Instructions: Orthopedic Discharge Instructions: 1. Wound care and infection precautions, keep incision dry and covered while showering, no lotions, creams, moisturizers. No soaking, pools, hot tubs. Do not scrub over incision. 2. Weight-bear as tolerated with walker / cane until follow-up. 3. Ice and elevate when necessary. Do not exceed 20 minutes per hour with ice pack. 4. Utilize compression sleeve until seen at first follow up appointment. 5. Pain meds and anticoagulants per prescription. 6. Pain medication has potential to cause constipation. Increase oral fluid and fiber intake. Contact primary care provider if you have not had a bowel movement within 48 hours after discharge. 7. No anti-inflammatory medication until discussed at first post operative visit, this including Motrin, Aleve, Mobic, Diclofenac. 8. Follow up in office at 2 weeks postop with Sloan Salazar PA-C 9. Follow up with your primary care doctor 7-10 days after discharge. 10. Contact [facility] with any questions, . Discharge Disposition: HOME WITH HOME HEALTH SERVICES
[2019-08-02 16:13] VITALS: BP 112/61; PULSE 78; RESP 20; TEMP 98
--- NOTE | 2019-08-02 23:46 | P.PN ---
Progress Note - Text Progress Note Date: 08/02/19 - Chief Complaint Right knee surgery interval history: This is a pleasant 64-year-old patient of Dr. Ashley Mercado. Chronic stable medical conditions include diabetes, GERD, hypertension, hyperlipidemia, silent ID, AICD/permanent pacemaker. Patient has undergone a right total knee arthroplasty. Pain well controlled. Already has been out of bed. No nausea vomiting. No chest pain. Did tolerate a small supper. today-. Better. No new issues. Pain control. Did tolerate her diet. Did work with therapy. Progress review of systems current medications reviewed from patient's today's electronic records Physical examination: VITAL SIGNS: today's vital signs are noted GENERAL: sitting up, comfortable. EYES: Pupils equal. Conjunctiva normal. HEENT: External appearance of nose and ears normal, oral cavity grossly normal. NECK: JVD not raised; masses not palpable. HEART: First and second heart sounds are normal; no edema. LUNGS: Respiratory rate normal; clear to auscultation. ABDOMEN: Soft, nontender, liver spleen not palpable, no masses palpable. PSYCH: Alert and oriented x3; mood and affect normal. MUSCULOSKELETAL: Dressing over the right knee Investigations: [id number], 235, to 69 Assessment: -Right total knee arthroplasty -Diabetes mellitus type 2 on oral hypoglycemic -Essential hypertension -hyperlipidemia -Coronary artery disease with prior history of silent ID as per Dr. Gaona -AICD/permanent pacemaker -Morbid obesity BMI 41.8 Plan: stable. No new issues. Continue current medications. Thank you Dr. Chatterjee
== END 2019-08-02 17:05 | disposition home health service (06) ==
LOC: OR 07:54 → 4SSUR 11:59 → OR 08-02 17:05
PROVIDERS: ATTEND Orthopaedic Surgery
DX: M17.11 Unilateral primary osteoarthritis, right knee (principal); K21.9 Gastro-esophageal reflux disease without esophagitis; I25.2 Old myocardial infarction; I50.22 Chronic systolic (congestive) heart failure; I11.0 Hypertensive heart disease with heart failure; I25.10 Atherosclerotic heart disease of native coronary artery without angina pectoris; I42.9 Cardiomyopathy, unspecified; I47.1 Supraventricular tachycardia; I44.7 Left bundle-branch block, unspecified; E11.649 Type 2 diabetes mellitus with hypoglycemia without coma; E78.5 Hyperlipidemia, unspecified; E66.01 Morbid (severe) obesity due to excess calories; G47.33 Obstructive sleep apnea (adult) (pediatric); I73.9 Peripheral vascular disease, unspecified; I48.0 Paroxysmal atrial fibrillation; F17.210 Nicotine dependence, cigarettes, uncomplicated; K57.90 Diverticulosis of intestine, part unspecified, without perforation or abscess without bleeding; I83.90 Asymptomatic varicose veins of unspecified lower extremity; Z68.41 Body mass index [BMI] 40.0-44.9, adult; Z82.49 Family history of ischemic heart disease and other diseases of the circulatory system; Z79.01 Long term (current) use of anticoagulants; Z79.84 Long term (current) use of oral hypoglycemic drugs; Z79.899 Other long term (current) drug therapy; Z95.810 Presence of automatic (implantable) cardiac defibrillator; Z90.89 Acquired absence of other organs; Z98.890 Other specified postprocedural states; Z85.3 Personal history of malignant neoplasm of breast; F32.9 Major depressive disorder, single episode, unspecified
CPT/HCPCS: 97116; 97110; 97161; 64448; 76942; 85025; 88300; 83036; 73560; 27447; C1776; C1713; J2250; J0171; J1200; J1100; J0690 ×3; J2405; J1885; J2795; J0735; J1170

== ENCOUNTER → 2019-12-26 | Outpatient (CLI) | payer BC, OTHER ==
--- NOTE | 2019-12-26 09:07 | XR ---
EXAMINATION TYPE: XR cervical spine limited DATE OF EXAM: 12/26/2019 CLINICAL HISTORY: pain TECHNIQUE: 3 views of the cervical spine are submitted. COMPARISON: None. FINDINGS: There is satisfactory in alignment without evidence of acute fracture or dislocation. The pre-vertebral soft tissue appears within normal limits. Moderate to severe multilevel degenerative d isc space narrowing extending from C4 through C6 7. Ventral spondylosis identified. The C1-C2 articul ation is unremarkable on the open mouth view. IMPRESSION: No acute fracture or dislocation is seen in the cervical spine.
== END | disposition home or self-care (01) ==
LOC: RADXRMAIN 08:14
PROVIDERS: ATTEND Family Medicine
DX: M54.2 Cervicalgia (principal)
CPT/HCPCS: 72040

== ENCOUNTER → 2020-04-11 | Outpatient (CLI) | payer BC, OTHER ==
[2020-04-11 17:58] LABS: Chol/HDL Ratio 3.5
== END | disposition home or self-care (01) ==
LOC: LABWHC1 08:50
PROVIDERS: ATTEND Internal Medicine Clinical Cardiac Electrophysiology
DX: E11.9 Type 2 diabetes mellitus without complications (principal); E78.5 Hyperlipidemia, unspecified
CPT/HCPCS: 36415; 80061

== ENCOUNTER 2022-01-16 06:47 | Day surgery (SDC) | payer BC, MEDICARE, OTHER ==
[2022-01-13 15:44] VITALS: BMI 41.8
[~2022-01-16 06:47] MED LIST changes: -ACETAMINOPHEN TAB 500 MG TAB PO ONE; -DEXAMETHASONE SOD PHOSPHATE 10 MG/ML 1 ML VIAL IV ONE; -HYDROmorphone 0.5 MG/0.5 ML SYRINGE IVP PRN; +LACTATED RINGERS 1,000 ML IV SCH; +LIDOCAINE 1% (10MG/ML) FOR IV START INTRADERMA PRN; -LIDOCAINE 1% 20 ML VIAL (10MG/ML) FOR IV START INTRADERMA PRN; -MELOXICAM 7.5 MG TAB PO ONE; -MIDAZOLAM 2 MG/2 ML VIAL IV PRN; -ONDANSETRON 4 MG/2 ML VIAL IVP ONE; -ROPIVACAINE 246.25 MG, EPINEPHrine 0.5 MG, KETOROLAC 30 MG, cloNIDine HCL/PF 80 MCG, WA... MISCELLANE ONE; -TRANEXAMIC ACID 1,000 MG in SODIUM CHLORIDE 0.9% 100 ML IVPB ONE; -ceFAZolin 3 GM in SODIUM CHLORIDE 0.9% 100 ML IVPB ONE; -fentaNYL (PF) 50 MCG/ML 2 ML AMP IV PRN
[2022-01-16] MEDS ORDERED: LACTATED RINGERS 1,000 ML IV ONE (07:06)
[2022-01-16 07:16] LABS: Glucose,Whole Blood 153 mg/dL (75-99)
[2022-01-16 07:18] VITALS: TEMP 97.8
[2022-01-16] MEDS ORDERED: PROPOFOL 10 MG/ML 20 ML VIAL IV ONE (07:39)
--- NOTE | 2022-01-16 07:40 | P.GSHP ---
History of Present Illness H&P Date: 01/16/22 CHIEF COMPLAINT: Colon screen HISTORY OF PRESENT ILLNESS: The patient is a 66-year-old female who presents for colon screen. Lower endoscopy was offered for further evaluation and management. PAST MEDICAL HISTORY: Please see list. PAST SURGICAL HISTORY: Please see list. MEDICATIONS: Please see list. ALLERGIES: Please see list. SOCIAL HISTORY: No illicit drug use FAMILY HISTORY: No reports of Crohn disease or ulcerative colitis. REVIEW OF ORGAN SYSTEMS: CONSTITUTIONAL: No reports of fevers or chills. PHYSICAL EXAM: VITAL SIGNS: Stable GENERAL: Well-developed pleasant in no acute distress. HEENT: No scleral icterus. Extraocular movements grossly intact. Moist buccal mucosa. NECK: Supple without lymphadenopathy. CHEST: Unlabored respirations. Equal bilateral excursions. CARDIOVASCULAR: Regular rate and rhythm. Distal 2+ pulses. ABDOMEN: Soft, nontender, nondistended. MUSCULOSKELETAL: No clubbing, cyanosis, or edema. ASSESSMENT: 1. Colon screen. PLAN: 1. Recommend proceeding with a lower endoscopy Past Medical History Past Medical History: Cancer, Diabetes Mellitus, GERD/Reflux, Hyperlipidemia, Hypertension, Myocardial Infarction ([place]), Osteoarthritis (OA), Thyroid Disorder Additional Past Medical History / Comment(s): HX BREAST CA, optical migraines, silent [place], heart murmur, gets swelling of left leg-cause unknown Last Myocardial Infarction Date:: unknown History of Any Multi-Drug Resistant Organisms: None Reported Past Surgical History: AICD, Breast Surgery, Heart Catheterization, Joint Replacement, Pacemaker, Tonsillectomy Additional Past Surgical History / Comment(s): RT BREAST LUMPECTOMY, right knee replacement Past Anesthesia/Blood Transfusion Reactions: Postoperative Nausea & Vomiting (PONV) Type of Cardiac Device: Permanent Pacemaker, AICD Device Placement Date:: 05/30/2014 Past Psychological History: No Psychological Hx Reported Additional Psychological History / Comment(s): . Smoking Status: Current every day smoker Past Alcohol Use History: None Reported Additional Past Alcohol Use History / Comment(s): smokes 6 cigarretes daily, has smoked for 30 yrs Past Drug Use History: None Reported - Past Family History Sister(s) Family Medical History: Cancer Additional Family Medical History / Comment(s): 2 SISTERS WITH CERVICAL CA Medications and Allergies Home Medications Medication Instructions Recorded Confirmed Type Lovastatin [Mevacor] 20 mg PO HS 05/26/14 01/13/22 History Spironolactone [Aldactone] 25 mg PO DAILY 05/26/14 01/13/22 History lisinopriL [Zestril] 10 mg PO BID 05/26/14 01/13/22 History carvediloL [Coreg] 1.5 tab PO BID 02/05/17 01/13/22 History metFORMIN HCL [Glucophage] 500 mg PO DAILY 07/26/19 01/13/22 History Aspirin [Adult Low Dose Aspirin EC] 81 mg PO DAILY 01/13/22 01/13/22 History Warfarin [Coumadin] 5 mg PO DAILY 01/13/22 01/13/22 History Allergies Allergy/AdvReac Type Severity Reaction Status Date / Time perflutren lipid microspheres Allergy Rash/Hives, Verified 01/13/22 15:25 [From Cortona3D] diff swallowing iv contrast dye with heart Allergy Rash/Hives, Uncoded 01/13/22 15:25 cath diff swallowing Surgical - Exam Vital Signs Temp Pulse Resp BP Pulse Ox 97.8 F 78 18 130/57 96 01/16/22 07:17 01/16/22 07:17 01/16/22 07:17 01/16/22 07:17 01/16/22 07:17 Results - Labs Abnormal Lab Results - Last 24 Hours (Table) 01/16/22 Range/Units 07:15 POC Glucose (mg/dL) 153 H (75-99) mg/dL
--- NOTE | 2022-01-16 07:44 | P.HPADDEND ---
H&P Addendum H&P Addendum Date: 01/16/22 Patient is on chronic anticoagulation and Coumadin. Last dose 3 days ago. Patient's elevated risk for complications with blood thinners including congestive heart failure and diabetes. Colonoscopy only described due to recent blood thinner use.
--- NOTE | 2022-01-16 08:01 | P.PCN ---
Date of Procedure: 01/16/22 Description of Procedure: PREOPERATIVE DIAGNOSIS: Personal history colon polyps Chronic anticoagulant use Morbid obesity due to excess calories Colonoscopy screening. POSTOPERATIVE DIAGNOSIS: Personal history colon polyps Chronic anticoagulant use Morbid obesity due to excess calories Colonoscopy screening. Sigmoid diverticulosis Internal and external hemorrhoids, grade 3 OPERATION: Colonoscopy to the cecum, ileocecal valve and appendiceal orifice. SURGEON: Nancy Osorio MD. ANESTHESIA: MAC. INDICATIONS: The patient is a 66-year-old female who presents for colonoscopy screening. Benefits and risks were described and informed consent was obtained. DESCRIPTION OF PROCEDURE: The patient had undergone MiraLAX Gatorade prep. The patient had been brought into the operating room and laid in the left lateral decubitus position. After adequate intravenous sedation, the rectum was examined with 2% lidocaine jelly. External hemorrhoids were encountered. The rectal tone was within normal limits. No lesions were palpated in the rectal vault. An Olympus colonoscope was advanced until the cecum, ileocecal valve and appendiceal orifice were clearly viewed. The prep was good. Scattered diverticulosis was encountered. No colonic polyps were found. No evidence of focal colitis was found. Retroflexion of the scope demonstrated grade 3 internal hemorrhoids without active bleeding or inflammation. The colon was desufflated. The patient had tolerated the procedure well. Withdrawal time was over 6 minutes. FINDINGS: Aronchick preparation quality scale 2 (1-5) Internal hemorrhoids, grade 3 External prolapsed hemorrhoids, grade 3 Severe sigmoid diverticulosis No arteriovenous malformations. No adenomatous polyps. No focal colitis. RECOMMENDATIONS: Lower endoscopy in 5 years, 2026 Plan - Discharge Summary Discharge Rx Participant: No New Discharge Prescriptions: Continue Spironolactone [Aldactone] 25 mg PO DAILY Lovastatin [Mevacor] 20 mg PO HS lisinopriL [Zestril] 10 mg PO BID carvediloL [Coreg] 1.5 tab PO BID metFORMIN HCL [Glucophage] 500 mg PO DAILY Warfarin [Coumadin] 5 mg PO DAILY Aspirin [Adult Low Dose Aspirin EC] 81 mg PO DAILY Discharge Medication List Lovastatin [Mevacor] 20 mg PO HS 05/26/14 [History] Spironolactone [Aldactone] 25 mg PO DAILY 05/26/14 [History] lisinopriL [Zestril] 10 mg PO BID 05/26/14 [History] carvediloL [Coreg] 1.5 tab PO BID 02/05/17 [History] metFORMIN HCL [Glucophage] 500 mg PO DAILY 07/26/19 [History] Aspirin [Adult Low Dose Aspirin EC] 81 mg PO DAILY 01/13/22 [History] Warfarin [Coumadin] 5 mg PO DAILY 01/13/22 [History] Follow up Appointment(s)/Referral(s): Nancy Osorio MD [STAFF PHYSICIAN] - As Needed Patient Instructions/Handouts: Diverticulosis Diet (GEN), Diverticulosis (DC), *Surgery [facility] - (Anesthesia) Endoscopy Discharge Instructions Activity/Diet/Wound Care/Special Instructions: Repeat colonoscopy in 5 years, 2026. Resume blood thinner today Discharge Disposition: HOME SELF-CARE
[2022-01-16 08:03] VITALS: RESP 16
[2022-01-16 08:27] VITALS: BP 119/68; PULSE 68
== END 2022-01-16 08:34 | disposition home or self-care (01) ==
LOC: ORWHC2ENDO 06:47
PROVIDERS: ATTEND Surgery Plastic and Reconstructive Surgery
DX: K57.30 Diverticulosis of large intestine without perforation or abscess without bleeding (principal); K64.4 Residual hemorrhoidal skin tags; K64.8 Other hemorrhoids; K21.9 Gastro-esophageal reflux disease without esophagitis; E11.9 Type 2 diabetes mellitus without complications; E66.01 Morbid (severe) obesity due to excess calories; E78.5 Hyperlipidemia, unspecified; F17.200 Nicotine dependence, unspecified, uncomplicated; I10 Essential (primary) hypertension; I25.2 Old myocardial infarction; M19.90 Unspecified osteoarthritis, unspecified site; Z79.01 Long term (current) use of anticoagulants; Z79.82 Long term (current) use of aspirin; Z79.84 Long term (current) use of oral hypoglycemic drugs; Z85.3 Personal history of malignant neoplasm of breast; Z95.810 Presence of automatic (implantable) cardiac defibrillator; Z79.899 Other long term (current) drug therapy; Z86.010 Personal history of colon polyps
CPT/HCPCS: 45378; J2704

== ENCOUNTER 2022-04-21 06:07 | Day surgery (SDC) | payer MEDICARE ==
[2022-04-18 14:42] VITALS: BMI 41.8
[~2022-04-21 06:07] MED LIST changes: -LACTATED RINGERS 1,000 ML IV SCH; -LIDOCAINE 1% (10MG/ML) FOR IV START INTRADERMA PRN; +SODIUM CHLORIDE 0.9% 1,000 ML IV SCH
[2022-04-21 06:36] LABS: Glucose,Whole Blood 154 mg/dL (70-110)
[2022-04-21 06:39] VITALS: RESP 18; TEMP 97.8
[2022-04-21 06:41] LABS: Basophils # (A) 0.1 k/uL (0-0.2); Basophils % (A) 1 %; Eosinophils # (A) 0.3 k/uL (0-0.7); Eosinophils % (A) 4 %; HCT 47.6 % (34.0-46.0); HGB 14.8 gm/dL (11.4-16.0); Lymphocytes # (A) 1.8 k/uL (1.0-4.8); Lymphocytes % (A) 23 %; MCV 90.1 fL (80.0-100.0); Mean Platelet Volume 7.4; Monocytes # (A) 0.5 k/uL (0-1.0); Monocytes % (A) 6 %; Neutrophils # (A) 5.3 k/uL (1.3-7.7); Neutrophils % (A) 66 %; Platelet Count 205 k/uL (150-450); RBC 5.28 m/uL (3.80-5.40); RDW 14.7 % (11.5-15.5)
[2022-04-21 06:46] LABS: INR 1.4 (<1.2); Prothrombin Time 14.8 sec (9.0-12.0)
[2022-04-21] MEDS ORDERED: ceFAZolin 1 GM in SODIUM CHLORIDE 0.9% IRRIG BTL 250 ML IRRIGATION PRN (07:00)
[2022-04-21 07:04] LABS: African American GFR (CKD) >90 (>60 ml/min/1.73 sqM); Anion Gap 7 mmol/L; Blood Urea Nitrogen 12 mg/dL (7-17); Calcium 9.1 mg/dL (8.4-10.2); Carbon Dioxide 22 mmol/L (22-30); Chloride 108 mmol/L (98-107); Glucose 148 mg/dL (74-99); Non-African American GFR(CKD) >90 (>60 ml/min/1.73 sqM); Sodium 137 mmol/L (137-145)
[2022-04-21] MEDS ORDERED: ONDANSETRON 4 MG/2 ML VIAL ONE (07:10)
[2022-04-21] MEDS ORDERED: fentaNYL (PF) 50 MCG/ML 2 ML AMP ONE (07:10)
[2022-04-21] MEDS ORDERED: MIDAZOLAM 2 MG/2 ML VIAL ONE (07:10)
[2022-04-21 07:20] LABS: Potassium 4.7 mmol/L (3.5-5.1)
[2022-04-21] MEDS ORDERED: LIDOCAINE 1% INJ 10MG/ML (30 ML VIAL-PF) SQ ONE (07:55)
[2022-04-21] MEDS ORDERED: ACETAMINOPHEN TAB 325 MG TAB PO PRN (08:53)
[2022-04-21] MEDS ORDERED: WARFARIN 5 MG TAB PO SCH (09:00)
[2022-04-21] MEDS ORDERED: metFORMIN 500 MG TAB PO SCH (09:00)
--- NOTE | 2022-04-21 09:14 | P.EPPROC ---
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 Written informed consent was obtained prior to the procedure. Conscious sedation provided by anesthesia team IV antibiotics administered. Local anesthesia administered. A 4 cm incision made in the pectoral area. Subfascial pocket accessed Chronic Atrial lead position the right atrial appendage. Threshold 0.75 V at 0.5 ms, P waves greater than 5 mV and pacing impedance 700 ohms RV lead position in the RV apex. Pacing threshold 1.25 also 0.5 ms, R waves 4.2 mV and pacing impedance 310 ohms LV lead positioned in the LV vein 1.4 V at 0.5 ms, M3-RV coil, pacing impedance 310 ohms High-voltage impedance 72 ohms Biventricular ICD generator device connected to the leads and placed in the subfascial pocket Patient tolerated the procedure well without acute complications
[2022-04-21] MEDS ORDERED: ACETAMINOPHEN IV (For NPO) 1,000 MG in EMPTY BAG 1 BAG IVPB ONE (12:15)
[2022-04-21 13:01] VITALS: BP 95/51; PULSE 56
[2022-04-21] MEDS ORDERED: carvediloL 6.25 MG TAB PO SCH (17:30)
[2022-04-21] MEDS ORDERED: ATORVASTATIN 10 MG TAB PO SCH (21:00)
[2022-04-22] MEDS ORDERED: WARFARIN 5 MG TAB PO SCH (08:55)
[2022-04-22] MEDS ORDERED: ASPIRIN 81 MG PO SCH (09:00)
[2022-04-22] MEDS ORDERED: SPIRONOLACTONE 25 MG TAB PO SCH (09:00)
[2022-04-22] MEDS ORDERED: FUROSEMIDE 20 MG TAB PO SCH (09:00)
== END 2022-04-21 13:04 | disposition home or self-care (01) ==
LOC: CATHEP 06:07
PROVIDERS: ATTEND Internal Medicine Clinical Cardiac Electrophysiology
DX: I42.8 Other cardiomyopathies (principal); I11.0 Hypertensive heart disease with heart failure; I50.9 Heart failure, unspecified; I48.0 Paroxysmal atrial fibrillation; E11.51 Type 2 diabetes mellitus with diabetic peripheral angiopathy without gangrene; Z20.822 Contact with and (suspected) exposure to COVID-19; E11.69 Type 2 diabetes mellitus with other specified complication; E78.5 Hyperlipidemia, unspecified; F17.210 Nicotine dependence, cigarettes, uncomplicated; Z82.49 Family history of ischemic heart disease and other diseases of the circulatory system; Z95.810 Presence of automatic (implantable) cardiac defibrillator; Z88.8 Allergy status to other drugs, medicaments and biological substances; Z79.899 Other long term (current) drug therapy; Z79.82 Long term (current) use of aspirin; Z79.84 Long term (current) use of oral hypoglycemic drugs; Z79.01 Long term (current) use of anticoagulants; E66.01 Morbid (severe) obesity due to excess calories; Z91.041 Radiographic dye allergy status
CPT/HCPCS: 33264; 80048; 85025; 85610; 87635; C1882; J2250; J0690; J2405; J2001; J3010